=== PATIENT | female | born 1970 | race Caucasian/White ===

== ENCOUNTER 2016-03-26 18:32 | Emergency (ER) | payer MEDICAID ==
[~2016-03-26] VITALS: Ht 165.1 cm; Wt 71.0 kg
[~2016-03-26 18:32] MED LIST: ACET500C5 PO; DOCU-144 PO; POLY17PO6 PO
[2016-03-26 18:39] VITALS: Ht 165.1 cm; Wt 71.0 kg
--- NOTE | 2016-03-26 20:17 | RADRPT ---
PROCEDURE: US DVT. CLINICAL INDICATION: Left lower extremity pain and swelling. TECHNIQUE: Multiple longitudinal and transverse images of the left lower extremity veins were obta ined with kuo scale and color Doppler imaging. 2D grayscale measurements with compression, color D oppler flow, and augmentation was performed. The calf veins were interrogated as well. COMPARISON: No prior studies are available for comparison. FINDINGS: The left common femoral, femoral and popliteal veins are normally compressible throughout. Color flow demonstrates normal filling of the vessel. Normal waveforms are visualized and there is normal response to augmentation. The calf veins are visualized and are equally unremarkable. IMPRESSION: 1. No evidence of a deep vein thrombosis involving the left lower extremity. RPTAT: HLDM .Max Snider MD, MD Date Time Electronically viewed and signed by .Max Snider MD, on 03/26/2016 20:16 .M/
--- NOTE | 2016-03-26 20:26 | ERD ---
ER Documentation Chief Complaint Date/Time DATE: 03/26/16 TIME: 20:21 Chief Complaint "PAIN BEHIND MY L KNEE, HAVE HAD THIS FOR A LONG TIME" HPI This is a 45 year old female who presents to the emergency department today complaining of pain and some swelling in the back of her left knee for the past 3 days. Patient denies any trauma. Denies any cough, shortness of breath or calf pain. Denies taking any oral contraceptive pills or cigarette smoke. Denies any fevers or chills. ROS All systems reviewed and are negative except as per history of present illness. Medications Home Meds Active Scripts Acetaminophen* (Tylophen*) 500 Mg Capsule, 1 CAP PO Q6H Y for PAIN AND OR ELEVATED TEMP, #30 CAP Prov:TYREL PEGUERO PA-C 03/26/16 Naproxen* (Naprosyn*) 500 Mg Tablet, 500 MG PO BID Y for PAIN AND/OR INFLAMMATION, #30 TAB Prov:TYREL PEGUERO PA-C 03/26/16 Acetaminophen* (Tylophen*) 500 Mg Capsule, 1 CAP PO Q6H Y for PAIN AND OR ELEVATED TEMP, #20 CAP Prov:LORRAINE FRITZ NP 01/06/15 Polyethylene Glycol* (Miralax*) 17 Gm Powd.pack, 17 GM PO DAILY, #7 Prov:LORRAINE FRITZ NP 01/06/15 Docusate Sodium* (Colace*) 100 Mg Capsule, 100 MG PO TID, #30 Prov:LORRAINE FRITZ NP 01/06/15 Reported Medications [none] Unknown Strength No Conflict Check 01/06/15 Allergies Allergies: Coded Allergies: No Known Drug Allergy (Verified Allergy, Unknown, 03/26/16) PMhx/Soc History of Surgery: Yes (tubal ligation) Anesthesia Reaction: No Hx Neurological Disorder: No Hx Respiratory Disorders: No Hx Cardiac Disorders: No Hx Psychiatric Problems: No Hx Miscellaneous Medical Probl: Yes (anxiety ) Hx Alcohol Use: No Hx Substance Use: No Hx Tobacco Use: No Smoking Status: Never smoker Physical Exam Vitals Vital Signs Date Time Temp Pulse Resp B/P Pulse Ox O2 Delivery O2 Flow Rate FiO2 03/26/16 18:39 97.8 98 18 136/76 99 Physical Exam Const: No acute distress Head: Atraumatic Eyes: Normal Conjunctiva ENT: Normal External Ears, Nose and Mouth. Neck: Full range of motion..~ No meningismus. Resp: Clear to auscultation bilaterally. No loss of breath sounds. No wheezing. Cardio: Regular rate and rhythm, no murmurs Abd: Soft, non tender, non distended. Normal bowel sounds Skin: No petechiae or rashes Back: No midline or flank tenderness MSK: Left knee with no obvious deformity. Mild effusion posterior aspect of knee. No evidence of popliteal cyst or firmness. Pulses 2+. Distal neurovascularly intact. Full active range of motion at knee. Ext: No cyanosis, or edema. No calf pain. Neur: Awake and alert Psych: Normal Mood and Affect Results 24 hrs DIAGNOSTIC IMAGING REPORT Patient: DAVID LIZAMA : 1970 Age: 45 Sex: F MR #: [id number] DOS: 03/26/16 0000 Ordering MD: TYREL PEGUERO PA-C Location: [facility] Room/Bed: PROCEDURE: US DVT. CLINICAL INDICATION: Left lower extremity pain and swelling. TECHNIQUE: Multiple longitudinal and transverse images of the left lower extremity veins were obtained with kuo scale and color Doppler imaging. 2D grayscale measurements with compression, color Doppler flow, and augmentation was performed. The calf veins were interrogated as well. COMPARISON: No prior studies are available for comparison. FINDINGS: The left common femoral, femoral and popliteal veins are normally compressible throughout. Color flow demonstrates normal filling of the vessel. Normal waveforms are visualized and there is normal response to augmentation. The calf veins are visualized and are equally unremarkable. IMPRESSION: 1. No evidence of a deep vein thrombosis involving the left lower extremity. RPTAT: HLDM .Max Snider MD, Date Time Electronically viewed and signed by .Max Snider MD, MD on 03/26/2016 20: 16 .M/ CC: TYREL PEGUERO PA-C Procedures/MDM This is a 45 old female who presents in the department today complaining of some swelling and pain in the back of her left knee. On physical exam patient did have some swelling there have better she's not had any trauma. Do not put the patient requires an x-ray at this time. I did obtain a Doppler ultrasound to rule out a DVT. Left lower extremity Doppler shows no evidence of deep vein thrombosis involving the left lower extremity. The left common femoral, popliteal veins are normal compressible throughout. Patient may have some swelling in the back of her knee due to Garcia's cyst, popliteal cyst or effusion secondary to internal derangement of her knee. Patient is afebrile and otherwise well appearing and low suspicion for septic joint or gout. She is not tachycardic and her oxygen saturations 99%. Low suspicion for PE. No evidence of cellulitis. There is no erythema or warmth. Patient will be given a description for Naprosyn for home as well as an Devin wrap. She was instructed to apply ice intermittently to the area. At this time the patient is stable for discharge and outpatient management. Patient should follow up with their PCP in the next 1-2 days. They may return to the emergency department sooner for any persistent or worsening of symptoms. Patient understood and agreed with the plan. Departure Diagnosis: Primary Impression: Knee swelling Condition: Fair TYREL PEGUERO PA-C Mar 26, 2016 20:26
[2016-03-26] MEDS ORDERED: NAPR-260 PO (20:27)
[2016-03-26] MEDS ORDERED: ACET500C5 PO (20:28)
== END 2016-03-26 20:35 | disposition home or self-care (01) ==
LOC: FTE 18:32
DX: R22.42 Localized swelling, mass and lump, left lower limb (principal)
CPT/HCPCS: 93971; Z7502

== ENCOUNTER 2016-05-29 16:33 | Emergency (ER) | payer MEDICAID ==
[~2016-05-29] VITALS: Ht 157.5 cm; Wt 65.8 kg
[~2016-05-29 16:33] MED LIST changes: +NAPR-260 PO
[2016-05-29 16:35] VITALS: Ht 157.5 cm; Wt 65.8 kg
[2016-05-29 18:54] LABS: URINE BLOOD (Dip) POC 2+ (NEGATIVE)
[2016-05-29] MEDS ORDERED: NITR-58 PO (18:57)
[2016-05-29] MEDS ORDERED: FAMO-18 PO (18:58)
--- NOTE | 2016-05-29 22:18 | ERD ---
ER Documentation Chief Complaint Date/Time DATE: 05/29/16 TIME: 21:37 Chief Complaint burning sensation on pubic area, no rash noted x 1 week HPI Patient is a 45-year-old female who presents to the ED with a tingling sensation to her suprapubic area. She states that she has had this for the last week or 2. She denies dysuria urgency. Denies back pain. Denies fever or chills. Denies abdominal pain, nausea, vomiting or diarrhea. Denies chest pain, cough, shortness of breath or difficulty breathing. She denies itching or redness or swelling. She has no other complaints. She states that she does have a history of gastritis and takes omeprazole. She states that she would like a refill of her Pepcid. ROS All systems reviewed and are negative except as per history of present illness. Medications Home Meds Active Scripts Famotidine* (Pepcid*) 20 Mg Tablet, 20 MG PO BID for 14 Days, TAB Prov:CAROLE REVELES PA-C 05/29/16 Nitrofurantoin Monohyd Macrocr* (Macrobid*) 100 Mg Capsr, 100 MG PO BID for 7 Days, CAP Prov:CAROLE REVELES PA-C 05/29/16 Acetaminophen* (Tylophen*) 500 Mg Capsule, 1 CAP PO Q6H Y for PAIN AND OR ELEVATED TEMP, #30 CAP Prov:TYREL PEGUERO PA-C 03/26/16 Naproxen* (Naprosyn*) 500 Mg Tablet, 500 MG PO BID Y for PAIN AND/OR INFLAMMATION, #30 TAB Prov:TYREL PEGUERO PA-C 03/26/16 Acetaminophen* (Tylophen*) 500 Mg Capsule, 1 CAP PO Q6H Y for PAIN AND OR ELEVATED TEMP, #20 CAP Prov:LORRAINE FRITZ NP 01/06/15 Polyethylene Glycol* (Miralax*) 17 Gm Powd.pack, 17 GM PO DAILY, #7 Prov:LORRAINE FRITZ NP 01/06/15 Docusate Sodium* (Colace*) 100 Mg Capsule, 100 MG PO TID, #30 Prov:LORRAINE FRITZ NP 11/25/15 Reported Medications [none] Unknown Strength No Conflict Check 01/06/15 Allergies Allergies: Coded Allergies: No Known Drug Allergy (Verified Allergy, Unknown, 03/26/16) PMhx/Soc History of Surgery: Yes (tubal ligation) Anesthesia Reaction: No Hx Neurological Disorder: No Hx Respiratory Disorders: No Hx Cardiac Disorders: No Hx Psychiatric Problems: No Hx Miscellaneous Medical Probl: Yes (anxiety gastritis) Hx Alcohol Use: No Hx Substance Use: No Hx Tobacco Use: No Smoking Status: Never smoker FmHx Family History: No coronary disease, No diabetes, No other Physical Exam Vitals Vital Signs Date Time Temp Pulse Resp B/P Pulse Ox O2 Delivery O2 Flow Rate FiO2 05/29/16 16:35 98.2 73 18 142/73 99 Physical Exam GENERAL: Well-developed, well-nourished female. Appears in no acute distress. HEAD: Normocephalic, atraumatic. EYES: Pupils are equally reactive bilaterally. EOMs grossly intact. No conjunctival erythema. ENT: Moist mucous membranes. No uvula deviation. No kissing tonsils. No exudates. NECK: Supple. No lymphadenopathy or thyromegaly. No meningismus. negative kernig. negative brudinski. LUNG: Clear to auscultation bilaterally. No rhonchi, wheezing, rales or coarse breath sounds. HEART: Regular rate and rhythm. No murmurs, rubs or gallops. ABDOMEN: No scars, ecchymosis or rashes noted. Soft, nontender, and nondistended. Positive bowel sounds in all four quadrants. No rebound tenderness , no guarding. (-) McBurneys point tenderness. No CVA tenderness. Extremities: Equal pulses bilaterally. No peripheral clubbing, cyanosis or edema. No unilateral leg swelling. NEUROLOGIC: Alert and oriented. Moving all four extremities. 5/5 strength in all extremities. Normal speech. Steady gait. SKIN: Normal color. Warm and dry. No rashes or lesions. Capillary refill < 2 seconds Results 24 hrs Laboratory Tests Test 05/29/16 18:54 Bedside Urine pH (LAB) 6.0 Bedside Urine Protein (LAB) Negative Bedside Urine Glucose (UA) Negative Bedside Urine Ketones (LAB) Negative Bedside Urine Blood 2+ Bedside Urine Nitrite (LAB) Negative Bedside Urine Leukocyte Esterase (L 1+ Procedures/MDM ER COURSE: I kept the patient and/or family informed of laboratory and diagnostic imaging results throughout the emergency room course. MEDICAL DECISION MAKING: This is a 35-year-old female who presents with tingling sensation on her suprapubic area on and off for 2 weeks. Vital signs were reviewed. Patient is afebrile. Patient is not hypoxic. Patient is not toxic or ill-appearing. Her urine shows trace leukocytes with no nitrites. I will be treating the patient for cystitis. Low suspicion for ovarian torsion, PID, tuboovarian abscess, ectopic , bowel obstruction, pyelonephritis, appendicitis, cervicitis, septic , molar , HELLP syndrome, preeclampsia, eclampsia, placenta previa, placenta abruptia. Low suspicion for necrotizing fasciitis, SJS, toxic epidermal necrolysis, Kawasaki, erythema multiforme, gangrene, scarlet fever, meningococcemia, sepsis, anaphylaxis, sepsis, deep space infection, or foreign body. DISCHARGE: At this time, patient is stable for discharge and outpatient management with no new complaints during the ER course. Patient was sent home with Macrobid and a refill of her Pepcid. Patient will be discharged home with instructions to recheck for new or worsening symptoms such as fever, nausea, weakness, LOC and to follow up with primary care in the next 1-2 days. Patient was advised to return to the ER for any new or worsening symptoms. Plan was discussed and patient and/or family understands and agrees. Home instructions were given. Departure Diagnosis: Primary Impression: Cystitis Condition: Stable Patient Instructions: Bladder Infection (Cystitis), Female (Child) Additional Instructions: Llame al doctor MAANA y davi deya ROSARIO PARA DENTRO DE 1-2 LYNNE.Dgale a la secretaria que nosotros le instruimos hacer esta rosario.Avise o llame si anderson condicin se empeora antes de la rosario. Regresa aqui si peor o no mejor. CAROLE REVELES PA-C May 29, 2016 22:16
== END 2016-05-29 19:25 | disposition home or self-care (01) ==
LOC: FTE 16:33
DX: N30.90 Cystitis, unspecified without hematuria (principal)
CPT/HCPCS: 81003; 99283

== ENCOUNTER 2016-07-16 08:30 | Emergency (ER) | payer MEDICAID ==
[~2016-07-16] VITALS: Ht 160 cm; Wt 62.5 kg
[~2016-07-16 08:30] MED LIST changes: +FAMO-18 PO; +NITR-58 PO
[2016-07-16 08:45] VITALS: Ht 160 cm; Wt 62.5 kg
--- NOTE | 2016-07-16 09:23 | ERD ---
ER Documentation Chief Complaint Date/Time DATE: 07/16/16 TIME: 09:21 Chief Complaint VAGINAL PAIN AND URINARY FREQUENCY X 1 DAYS. HPI 45-year-old female comes in with burning with urination for the past 1 day, she states she has exterior vaginal pain. Patient states that she is postmenopausal , her last menstrual period was 2 years ago and the last time she is sexually active as a month ago. She has not had any fevers or chills. Denies vaginal bleeding. ROS All systems reviewed and are negative except as per history of present illness. Medications Home Meds Active Scripts Metronidazole* (Metrogel* Vaginal) 0.75% -70 Gram Gel.w.appl, 1 APPFUL VAG BID for 7 Days, TUB Prov:BASSEM WALKER PA-C 07/16/16 Famotidine* (Pepcid*) 20 Mg Tablet, 20 MG PO BID for 14 Days, TAB Prov:CAROLE REVELES PA-C 05/29/16 Nitrofurantoin Monohyd Macrocr* (Macrobid*) 100 Mg Capsr, 100 MG PO BID for 7 Days, CAP Prov:CAROLE REVELES PA-C 05/29/16 Acetaminophen* (Tylophen*) 500 Mg Capsule, 1 CAP PO Q6H Y for PAIN AND OR ELEVATED TEMP, #30 CAP Prov:TYREL PEGUERO PA-C 03/26/16 Naproxen* (Naprosyn*) 500 Mg Tablet, 500 MG PO BID Y for PAIN AND/OR INFLAMMATION, #30 TAB Prov:TYREL PEGUERO PA-C 03/26/16 Acetaminophen* (Tylophen*) 500 Mg Capsule, 1 CAP PO Q6H Y for PAIN AND OR ELEVATED TEMP, #20 CAP Prov:LORRAINE FRITZ NP 01/06/15 Polyethylene Glycol* (Miralax*) 17 Gm Powd.pack, 17 GM PO DAILY, #7 Prov:LORRAINE FRITZ NP 01/06/15 Docusate Sodium* (Colace*) 100 Mg Capsule, 100 MG PO TID, #30 Prov:LORRAINE FRITZ NP 01/06/15 Reported Medications [none] Unknown Strength No Conflict Check 01/06/15 Allergies Allergies: Coded Allergies: No Known Drug Allergy (Verified Allergy, Unknown, 03/26/16) PMhx/Soc History of Surgery: Yes (tubal ligation) Anesthesia Reaction: No Hx Neurological Disorder: No Hx Respiratory Disorders: No Hx Cardiac Disorders: No Hx Psychiatric Problems: No Hx Miscellaneous Medical Probl: Yes (anxiety gastritis) Hx Alcohol Use: No Hx Substance Use: No Hx Tobacco Use: No Smoking Status: Never smoker Physical Exam Vitals Vital Signs Date Time Temp Pulse Resp B/P Pulse Ox O2 Delivery O2 Flow Rate FiO2 07/16/16 08:45 97.3 75 17 135/75 99 Physical Exam General: Well-developed, well-nourished. The patient appears in no acute distress. HEENT: Head is normocephalic, atraumatic. No scleral icterus. Neck: Supple. Nontender. Lungs: Clear to auscultation. Normal air movement. Heart: Regular rate and rhythm. S1 and S2 are normal. No murmurs, gallops, or rubs. Abdomen: Soft, nontender, nondistended. Bowel sounds are normoactive. : Cervix is normal, there is white vaginal discharge, +fishy odor, no CMT tenderness. No masses Extremities: No clubbing or cyanosis. Normal pulses. Moving extremities x 4. No weakness. Neurologic: Alert and oriented 3. No focal deficits. Skin: Normal turgor. No rash or lesions. Results 24 hrs Laboratory Tests Test 07/16/16 09:14 Urine Color LT. YELLOW Urine Clarity CLEAR Urine pH 6.0 Urine Specific [place] <=1.005 Urine Ketones NEGATIVE Urine Nitrite NEGATIVE Urine Bilirubin NEGATIVE Urine Urobilinogen 0.2 E.U./dL Urine Leukocyte Esterase NEGATIVE Urine Microscopic RBC 0-2/HPF Urine Microscopic WBC 0-2/HPF Urine Squamous Epithelial Cells RARE Urine Hemoglobin TRACE Urine Glucose NEGATIVE% Urine Total Protein NEGATIVE Procedures/MDM 45 yo female comes in with painful urination, and on examination there is some vaginal discharge with foul odor. Differnetual diagnosis includes but is not limited to UTI, pyelonephritis, cervicitis, PID, tubo-ovarian abscess, , vaginitis, yeast infection. She does have followed her white discharge, will be treated for vaginitis. She states that she has not been sexually active recently, last time was a month ago and previously she did not have any symptoms. Urine was sent for gonorrhea and chlamydia as precaution. Departure Diagnosis: Primary Impression: Vaginitis Condition: Good (ERASED) BASSEM WALKER PA-C Jul 16, 2016 09:23
[2016-07-16 09:28] LABS: ADD UMIC YES; URINE BILIRUBIN (Dip) NEGATIVE (NEGATIVE); URINE BLOOD (Dip) TRACE (NEGATIVE); URINE COLOR LT. YELLOW (YELLOW); URINE GLUCOSE (Dip) NEGATIVE (NEGATIVE); URINE KETONES (Dip) NEGATIVE (NEGATIVE); URINE LEUKOCYTE ESTERASE (Dip) NEGATIVE (NEGATIVE); URINE NITRITE (Dip) NEGATIVE (NEGATIVE); URINE TOTAL PROTEIN (Dip) NEGATIVE (NEGATIVE); URINE UROBILINOGEN (Dip) 0.2 E.U./dL (0.1-1.0)
[2016-07-16 09:42] LABS: SQUAMOUS EPITHELIAL CELL,UR RARE; URINE RBCS 0-2 /HPF (0)
[2016-07-16] MEDS ORDERED: METR70GE15 VAG (09:59)
== END 2016-07-16 10:13 | disposition home or self-care (01) ==
LOC: FTE 08:30
DX: N76.0 Acute vaginitis (principal)
CPT/HCPCS: 81001; 87591; Z7502; 99284

== ENCOUNTER 2017-12-22 11:46 | Emergency (ER) | END 2017-12-22 13:05 | disposition home or self-care (01) ==